=== PATIENT | female | born 1985 | race African-American/Black ===

== ENCOUNTER 2017-11-04 14:04 | Emergency (ER) | payer OTHER ==
[~2017-11-04] VITALS: Ht 160 cm; Wt 80.8 kg
[2017-11-04 14:33] VITALS: BP 102/71; Ht 160 cm; Wt 80.8 kg
== END 2017-11-04 15:11 | disposition home or self-care (01) ==
LOC: ED 14:04
DX: R10.9 Unspecified abdominal pain (principal); R11.2 Nausea with vomiting, unspecified; R19.7 Diarrhea, unspecified; Z88.5 Allergy status to narcotic agent